=== PATIENT | female | born 1990 | race Caucasian/White ===

== ENCOUNTER 2024-09-24 19:19 | Emergency (ER) | payer MEDICAID ==
[~2024-09-24] VITALS: Ht 162.6 cm; Wt 45.4 kg
[2024-09-24] MEDS ORDERED: METHOCARBAMOL (500MG) 500 MG TABLET ONE (21:40)
[2024-09-24] MEDS ORDERED: ACETAMINOPHEN ES 500 MG TABLET ONE (21:40)
[2024-09-24] MEDS: METHOCARBAMOL (750MG) 750 MG TABLET PO SCH (21:43)
[2024-09-24] MEDS: ACETAMINOPHEN ES 500 MG TABLET PO ONE (21:44)
[2024-09-24 22:04] VITALS: BP 115/78; TEMP 98.5; O2SAT 98
== END 2024-09-24 22:05 | disposition home or self-care (01) ==
LOC: ER 19:29
DX: M54.2 Cervicalgia (principal); M54.50 Low back pain, unspecified; F17.200 Nicotine dependence, unspecified, uncomplicated; V89.2XXA Person injured in unspecified motor-vehicle accident, traffic, initial encounter; Y93.89 Activity, other specified; Y92.410 Unspecified street and highway as the place of occurrence of the external cause; Y99.8 Other external cause status